=== PATIENT | female | born 1985 | race Two or more races ===

== ENCOUNTER 2022-08-09 06:18 | Emergency (ER) | payer MEDICAID ==
[~2022-08-09] VITALS: Ht 167.6 cm; Wt 75.0 kg
[2022-08-09 07:52] LABS: Hematocrit 36.8 % (36.0-46.0); Hemoglobin 12.2 g/dL (12.2-16.2); Mean Corpuscular Hemoglobin 27.5 pg (28.0-32.0); Mean Corpuscular Hgb Conc. 33.1 g/dL (32.0-36.0); Mean Corpuscular Volume 83.1 fL (80.0-100.0); Red Blood Cells 4.43 10^6/uL (4.0-5.20); Red Cell Distribution Width 17.3 % (11.8-14.3); White Blood Cell 4.3 10^3/uL (4.4-10.8)
[2022-08-09 08:00] LABS: Basophils % (manual) 0 (0.0-2.0); Blast Cells 0; Metamyelocytes % 0; Myelocytes % 0; Promyelocytes % 0; Reactive Lymphocytes 0
[2022-08-09 08:10] LABS: Albumin 3.5 g/dL (3.4-5.0); Calcium 9.6 mg/dL (8.5-10.1); Potassium 4.1 mmol/L (3.5-5.1)
[2022-08-09 08:14] LABS: BUN/Creatinine Ratio 14.5; Bilirubin, Total 0.4 mg/dL (0.2-1.0); Total Protein 8.2 g/dL (6.4-8.2)
[2022-08-09 08:47] LABS: Band Neutrophils % (manual) 46; Eosinophils % (manual) 1 (0-7); Lymphocytes % (manual) 16 (10.0-50.0); Monocytes % (manual) 22 (0-12)
[2022-08-09 09:17] LABS: Urine Bacteria FEW /hpf (None Seen); Urine Blood 1+ /uL (Negative); Urine Hyaline Cast FEW /lpf (0 - 2); Urine Mucus FEW (None Seen); Urine Specific Gravity 1.018 (1.001-1.035); Urine WBC 5 /hpf (0 - 5)
[2022-08-09] MEDS ORDERED: METO-281 PO (10:18)
[2022-08-09] MEDS ORDERED: PANT40TA2 PO (10:18)
[2022-08-09] MEDS ORDERED: BISM262C44 PO (10:18)
[2022-08-09 10:28] VITALS: BP 112/77
== END 2022-08-09 10:31 | disposition home or self-care (01) ==
LOC: ER 06:18
DX: K29.70 Gastritis, unspecified, without bleeding (principal); C50.911 Malignant neoplasm of unspecified site of right female breast; Z79.899 Other long term (current) drug therapy
CPT/HCPCS: 36415; 80053; 81001; 82150; 83690; 85007; 85027